=== PATIENT | female | born 1945 | race Hispanic/Latino ===

== ENCOUNTER 2018-08-10 06:09 | Day surgery (SDC) | payer OTHER, MEDICARE ==
[~2018-08-10] VITALS: Ht 162.6 cm; Wt 70.2 kg
[2018-08-10] VITALS (7 sets, daily range): BP systolic 90–147; BP diastolic 44–62
[~2018-08-10 06:09] MED LIST: AMLO5TAB7 PO; ATOR-2 PO; BRIM5DRO4 OP; BRINOS OD; CLOP75TA14 PO; DIAZ5TAB4 PO; FURO-151 PO; INSU100C14 SQ; INSU100V12 SQ; ISOS30TA6 PO; LOSA100T20 PO; METO-408 PO; METO5TAB2 PO; SODIUM CHLORIDE 0.9% 1000ML 1,000 ML IV ONE; SPIR25TA6 PO
[2018-08-10] MEDS ORDERED: RANITIDINE PO (07:23)
[2018-08-10] MEDS ORDERED: INSU200I SQ (07:23)
[2018-08-10] MEDS ORDERED: NITR0.4T50 SL (07:23)
[2018-08-10] MEDS ORDERED: BRINOS OP (07:23)
[2018-08-10] MEDS ORDERED: LOSA100T20 PO (07:23)
[2018-08-10] MEDS ORDERED: ISOS120T10 PO (07:23)
[2018-08-10] MEDS ORDERED: METO25TA6 PO (07:23)
[2018-08-10] MEDS ORDERED: PROPOFOL 10 MG/ML 20ML VIAL IV ONE ×2 (07:45)
== END 2018-08-10 08:45 | disposition home or self-care (01) ==
LOC: DAH 06:09 → ENDO 06:09
PROVIDERS: ATTEND Internal Medicine
DX: K29.50 Unspecified chronic gastritis without bleeding (principal); K21.9 Gastro-esophageal reflux disease without esophagitis; Z68.30 Body mass index [BMI] 30.0-30.9, adult; E78.5 Hyperlipidemia, unspecified; I11.0 Hypertensive heart disease with heart failure; F41.9 Anxiety disorder, unspecified; F32.9 Major depressive disorder, single episode, unspecified; E11.9 Type 2 diabetes mellitus without complications; K22.2 Esophageal obstruction; Z98.890 Other specified postprocedural states; Z95.1 Presence of aortocoronary bypass graft; Z97.10 Presence of artificial limb (complete) (partial), unspecified; Z98.49 Cataract extraction status, unspecified eye; Z88.0 Allergy status to penicillin; Z88.8 Allergy status to other drugs, medicaments and biological substances; I50.40 Unspecified combined systolic (congestive) and diastolic (congestive) heart failure
CPT/HCPCS: 43239; 43249; 82948 ×2; 88305; 93005; A4606; J2704 ×2; J7030